=== PATIENT | female | born 1965 | race African-American/Black ===

== ENCOUNTER → 2016-06-21 | Day surgery (SDC) | payer OTHER ==
[~2016-06-21] MED LIST: DOCU1CAP32 PO; FIORTAB4 PO; FLON0.053; FLURBIPROFEN 0.03% OPHT SOLN 2.5 ML BTL ONE; HYALURONIDASE/LIDOCAINE/BUPIVACAINE 11 ML SYR TL ONE; HYDR-2768 PO; LACTATED RINGER'S 1000 ML INJ 1,000 ML ONE; LANTUSP SQ; LIDOCAINE HCL 4% PF 5 ML AMP ONE; LISI-357 PO; MIDAZOLAM HCL 2 MG/2 ML VIAL ONE; NORT10CA PO; NOVOLOGMXP SQ; PHENYLEPHRINE HCL 2.5 % OPTH SOLN 15 ML BTL ONE; PROPOFOL 100 MG/10 ML INJ IV ONE; TETRACAINE 0.5% OPTH SOLN 15 ML BTL ONE; TROPICAMIDE 1% OPHT SOLN 15 ML BTL ONE
--- NOTE | 2016-07-04 08:16 | TN ---
cc: ALEX ARREOLA MD DATE OF SURGERY: 06/21/2016 DATE OF : 1965 PREOPERATIVE DIAGNOSIS Proliferative diabetic retinopathy, tractional retinal detachment, left eye. POSTOPERATIVE DIAGNOSIS Proliferative diabetic retinopathy, tractional retinal detachment, left eye. PROCEDURE Pars plana vitrectomy, membrane peeling, endolaser gas-fluid exchange, left eye. ANESTHESIA MAC. SURGEON Mikael COMPLICATIONS None. DETAILS OF PROCEDURE After informed consent was obtained and the eye was anesthetized with peribulbar anesthesia, she was brought to the operating room and the left eye was prepared and draped in the usual sterile fashion. A wire lid speculum was placed in the patient's left eye. 23-gauge vitrectomy cannulas were then placed in the lower temporal, supratemporal and supranasal quadrants 3 mm posterior to the corneoscleral limbus. An infusion cannula was placed lower temporally. Core vitrectomy was then performed using the vitreous cutter. The vitrectomy was carried out as far as possible to the vitreous base. Posteriorly the internal limiting membrane was peeled off from around the macular hole using intraocular forceps. Careful indirect ophthalmoscopy with scleral depression was then performed and no peripheral retinal breaks were noted. A complete air-fluid exchange was then performed. The air was then exchanged for 16% C3F8. The three vitrectomy cannulas were then removed. Subconjunctival injections of dexamethasone and Ancef were placed. An atropine drop, Maxitrol ointment and a patch and shield were then applied. The patient tolerated the procedure well. There were no complications. The patient will remain face down over the next five days. [facility]. Alex Arreola MD TAB/BT /11:51 AM /7:57 AM
== END | disposition home or self-care (01) ==
LOC: ESDC 13:50
PROVIDERS: ATTEND Ophthalmology Retina Specialist
DX: E11.3522 Type 2 diabetes mellitus with proliferative diabetic retinopathy with traction retinal detachment involving the macula, left eye (principal); Z79.4 Long term (current) use of insulin
CPT/HCPCS: 00145; 67108; 82948; J2250; J7120